=== PATIENT | female | born 1940 | race Hispanic/Latino ===

== ENCOUNTER → 2018-04-12 | Outpatient (CLI) | payer OTHER | END | disposition home or self-care (01) | LOC: RAH 08:26 | PROVIDERS: ATTEND Family Medicine | DX: Z12.31 Encounter for screening mammogram for malignant neoplasm of breast (principal) | CPT/HCPCS: 77067 ==

== ENCOUNTER 2018-05-29 16:52 | Emergency (ER) | payer OTHER ==
[2018-05-29 17:40] LABS: BASOPHILS % (AUTO) 0.9 % (0.0-5.0); EOSINOPHILS % (AUTO) 1.4 % (0.0-8.0); HEMATOCRIT 35.1 % (36-48); MEAN CORPUSCULAR HEMOGLOBIN 27.2 pg (27.0-33.0); MEAN CORPUSCULAR VOLUME 85.1 fL (79-99); MONOCYTES % (AUTO) 6.1 % (3.0-13.0); NEUTROPHILS % (AUTO) 72.6 % (40.0-77.0); PLATELET COUNT (AUTO) 328 K/uL (130-400); RED BLOOD CELL COUNT(AUTO) 4.13 MIL/uL (4.00-5.50); RED CELL DISTRIBUTION WIDTH 26.5 % (11.0-15.5); WHITE BLOOD COUNT (AUTO) 7.3 K/uL (4.8-10.8)
[2018-05-29] MEDS ORDERED: HYDRALAZINE HCL 20 MG/ML VIAL ONE (17:41)
[2018-05-29 17:53] LABS: APPEARANCE,URINE Clear (CLEAR); BILIRUBIN,URINE Negative (NEGATIVE); COLOR,URINE Yellow (YELLOW); GLUCOSE, URINE (UA) Negative (NEGATIVE); KETONES,URINE Negative (NEGATIVE); LEUKOCYTE ESTERASE ,URINE Negative (NEGATIVE); NITRATE,URINE Negative (NEGATIVE); OCCULT BLOOD,URINE Negative (NEGATIVE); PH,URINE 6.5 (5.0-8.0); PROTEIN,URINE Negative (NEGATIVE); UROBILINOGEN,URINE 0.2 mg/dL (0.2-1.0)
[2018-05-29 17:55] LABS: CREATININE 0.7 mg/dL (0.5-1.5); POTASSIUM 4.2 mmol/L (3.5-5.1)
[2018-05-29 17:59] LABS: INR 0.94 (0.85-1.15); PARTIAL THROMBOPLASTIN TIME 25.7 SEC (26.3-35.5); PROTHROMBIN TIME 9.9 SEC (9.6-11.6)
[2018-05-29 18:00] LABS: ALBUMIN 3.4 g/dL (3.5-5.0); BILIRUBIN,TOTAL 0.8 mg/dL (0.2-1.0); TOTAL PROTEIN, SERUM 7.9 g/dL (6.0-8.3)
== END 2018-05-29 19:00 | disposition home or self-care (01) ==
LOC: EDH 16:52
DX: I10 Essential (primary) hypertension (principal); E78.5 Hyperlipidemia, unspecified; Z90.89 Acquired absence of other organs; Z90.710 Acquired absence of both cervix and uterus; Z98.890 Other specified postprocedural states; Z91.041 Radiographic dye allergy status
CPT/HCPCS: 36415; 80053; 81003; 82550; 84484; 85025; 85610; 85730; 93005; 96374; 99284; J0360

== ENCOUNTER → 2023-04-30 | Outpatient (CLI) | payer OTHER ==
[~2023-04-30] MED LIST: AMLO-258 PO; ATOR20TA65 PO; CLON1PAT TD; CLOP75TA32 PO; FAMO20TA8 PO; HYDR-4154 PO; LEVO88CA4 PO; LOSA100T59 PO; METO100T14 PO
== END | disposition home or self-care (01) ==
LOC: SHCH 08:26
PROVIDERS: ATTEND Student in an Organized Health Care Education/Training Program
DX: I08.1 Rheumatic disorders of both mitral and tricuspid valves (principal); I48.0 Paroxysmal atrial fibrillation; I10 Essential (primary) hypertension; E78.5 Hyperlipidemia, unspecified
CPT/HCPCS: 93306

== ENCOUNTER → 2024-01-31 | Outpatient (CLI) | payer OTHER ==
[~2024-01-31] MED LIST changes: +APIX5TAB PO; +FERR-82 PO; -HYDR-4154 PO; +HYDR50TA37 PO; +LEVO137C4 PO; +TRAM100T34 PO
--- NOTE | 2024-02-01 11:59 | HMCSR ---
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 (R) 81.4cm/sec, Biphasic, Prof Fem Art. (L) 86.5cm/sec, Biphasic, Fem Art Prox. (R) 70.4cm/sec, Biphasic, Fem Art Prox. (L) 120.7cm/sec, Biphasic, Fem Art Mid. (R) cm/sec, Occluded, Fem Art Mid. (L) 84.8cm/sec, Biphasic, Fem Art Dist (R) cm/sec, Occluded, Fem Art Dist. (L) 102.8cm/sec, Biphasic, Pop Art(AK) (R) 23.5cm/sec, Monophasic, Pop Art (AK) (L) 104.4cm/sec, Biphasic, Pop Art (Fossa)(R) 26.2cm/sec, Monophasic, Pop Art (Fossa) (L) 75.0cm/sec, Biphasic, Pop Art(BK) (R) 33.1cm/sec, Monophasic, Pop Art (BK) (L) 53.8cm/sec, Biphasic, JEWELRY SALES REPRESENTATIVE Prox. (R) 52.5cm/sec, Biphasic, JEWELRY SALES REPRESENTATIVE Prox. (L) 38.6cm/sec, Biphasic, JEWELRY SALES REPRESENTATIVE Mid. (R) 40.0cm/sec, Monophasic, JEWELRY SALES REPRESENTATIVE Mid. (L) 73.6cm/sec, Biphasic, JEWELRY SALES REPRESENTATIVE Dist. (R) 32.6cm/sec, Monophasic, JEWELRY SALES REPRESENTATIVE Dist. (L) 42.2cm/sec, Biphasic, Per Art Dist. (R) 44.9cm/sec, Monophasic, Per Art Dist. (L) 34.1cm/sec, Biphasic, YEFRI Prox. (R) 40.8cm/sec, Monophasic, YEFRI Prox. (L) 29.7cm/sec, Biphasic, YEFRI Mid. (R) cm/sec, Occluded YEFRI Mid. (L) 29.7cm/sec, Biphasic, YEFRI Dist. (R) cm/sec, Occluded, YEFRI Dist. (L) 26.0cm/sec, Monophasic, Technologist Impression Diffuse atherosclerosis throughout the bilateral lower extremities. The right femoral artery appears occluded with collateralized trickle monophasic flow in the right po pliteal artery. The right anterior tibial artery appears occluded distally, no flow detected to the right dorsalis pe dis artery. The left anterior tibial artery appears atrophied with monophasic flow distally. Conclusion Diffuse atherosclerosis throughout the bilateral lower extremities. The right femoral artery appears occluded with collateralized trickle monophasic flow in the right po pliteal artery. The right anterior tibial artery appears occluded distally, no flow detected to the right dorsalis pe dis artery. The left anterior tibial artery appears atrophied with monophasic flow distally. Conclusion Diffuse atherosclerosis throughout the bilateral lower extremities. The right femoral artery appears occluded with collateralized trickle monophasic flow in the right po pliteal artery. The right anterior tibial artery appears occluded distally, no flow detected to the right dorsalis pe dis artery. The left anterior tibial artery appears atrophied with monophasic flow distally.
--- NOTE | 2024-02-01 11:59 | HMCSR ---
APPROVED REPORT Bilateral Lower Extremity Venous Study for DVT., Venous Competence.Study performed with patient in up right position or in reverse Trendelenburg. Vein Imaging CFV (R): Normal flow, augmentation and compression. No evidence of DVT, Diamter 9.1 mm, 283 ms of DVR . SFJ (R): Normal flow, augmentation and compression. No evidence of DVT. FEM (R): Normal flow, augmentation and compression. No evidence of DVT, 417 ms of DVR. POP (R): Normal flow, augmentation and compression. No evidence of DVT, 228 ms of DVR. DFV (R): Normal flow, augmentation and compression. No evidence of DVT. PTV (R): Normal flow, augmentation and compression. No evidence of DVT. Peroneals (R): Normal flow, augmentation and compression. No evidence of DVT. GAS (R): Normal flow, augmentation and compression. No evidence of DVT. CFV (L): Normal flow, augmen tation and compression. No evidence of DVT, Diamter 10.1 mm SFJ (L): Normal flow, augmentation and compression. No evidence of DVT. FEM (L): Normal flow, augmentation and compression. No evidence of DVT. POP (L): Normal flow, augmentation and compression. No evidence of DVT, 339 ms of DVR. DFV (L): Normal flow, augmentation and compression. No evidence of DVT. PTV (L): Normal flow, augmentation and compression. No evidence of DVT. Peroneals (L): Normal flow, augmentation and compression. No evidence of DVT. GAS (L): Normal flow, augmentation and compression. No evidence of DVT. Technologist Impression The deep veins of the bilateral lower extremities appear patent and compressible without evidence of thrombus. Deep venous reflux demonstrated in the bilateral popliteal veins. RGSV Junction 4.2 mm 0 ms Mid thigh 1.9 mm 0 ms Knee 1.6 mm 0 ms Mid- calf 1.6 mm 0 ms RSSV Prox 1.4 mm 0 ms Mid 1.1 mm 0 ms LGSV Junction 3.7 mm 206 ms Mid thigh 1.9 mm 0 ms Knee 1.7 mm 0 ms Mid-calf 1.5 mm 0 ms LSSV Prox 1.3 mm 0 ms Mid 1.4 mm 0 ms Conclusion The deep veins of the bilateral lower extremities appear patent and compressible without evidence of thrombus. Deep venous reflux demonstrated in the bilateral popliteal veins. Conclusion The deep veins of the bilateral lower extremities appear patent and compressible without evidence of thrombus. Deep venous reflux demonstrated in the bilateral popliteal veins.
== END | disposition home or self-care (01) ==
LOC: SHCH 14:02
PROVIDERS: ATTEND Student in an Organized Health Care Education/Training Program
DX: I70.90 Unspecified atherosclerosis (principal); I87.2 Venous insufficiency (chronic) (peripheral); R06.00 Dyspnea, unspecified
CPT/HCPCS: 93925; 93970

== ENCOUNTER 2024-03-19 20:55 | Emergency (ER) | payer OTHER ==
[~2024-03-19] VITALS: Ht 157.5 cm; Wt 73.0 kg
[~2024-03-19 20:55] MED LIST changes: -APIX5TAB PO; -FERR-82 PO; -LEVO137C4 PO; -TRAM100T34 PO
--- NOTE | 2024-03-19 20:55 | NUR ---
FINGER STICK GLUCOSE 108
--- NOTE | 2024-03-19 21:00 | NUR ---
TAKEN TO CT SCAN
--- NOTE | 2024-03-19 21:12 | NUR ---
BACK FROM CT SCAN
--- NOTE | 2024-03-19 21:14 | HMCIMG ---
CT HEAD/BRAIN W/O CONTRAST CLINICAL HISTORY: STROKE CODE COMPARISON: None TECHNIQUE: Multiple sequential axial images of the head were obtained from the base of the skull through vertex. CT was performed with one or more of the following dose reduction techniques: automated exposure control, adjustment of the mA and/or kV according to patient size, or use of iterative reconstruction technique FINDINGS: There is moderate atrophy and advanced small vessel disease. Additionally noted are resolved bilateral basal ganglion lacunar infarcts. The orbital contents, paranasal sinuses and mastoid air cells are within normal limits. The calvarium is intact. IMPRESSION: There are no acute findings. This information was called to the ER by the CT staff.
--- NOTE | 2024-03-19 21:36 | ERN ---
ED Note History of Present Illness Stated Complaint: STROKE SYMPTOMS Chief Complaint: Stroke Symptoms Time Seen by MD: 20:57 Dictation: 83-year-old female who was brought into the emergency room with a left facial droop. She was at her usual baseline until 3:00 p.m. when she took a nap. She had no symptoms prior to that and when she woke up she was going about her business and at some point the son noticed that her left face appeared asymmetric and brought her into the ED for further evaluation. Patient has a history of right renal mass in the upper pole and has been undergoing chemotherapy details are unclear at this time. 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 Stroke alert was called at 8:51 p.m. ER physician arrival 8.51 pm. GCS 15, NIH 1 Patient reported that she did not have any headache blurred vision diplopia motor weakness seizure activity or slurred speech. No history of loss of consciousness no history of fall. Her last known well time was at 3:00 p.m. 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 Allergies: Coded Allergies: Fish Containing Products (Unverified Allergy, Unknown, 12/07/22) fish oil (Unverified Allergy, Unknown, 12/07/22) hives iodine (Unverified Allergy, Unknown, 12/07/22) vitamin E (d-alpha tocopherol) (Unverified Allergy, Unknown, 12/07/22) hives Home Meds Reported Medications Apixaban (Eliquis) 5 Mg Tablet, 1 TAB PO BID for 30 Days, #60 TAB 0 Refills 03/19/24 Tramadol HCl (Tramadol HCl ER) 100 Mg Tab.er.24h, 0.5 TAB PO Q6HPRN PRN for pain for 30 Days, #30 TAB 0 Refills 03/19/24 Levothyroxine Sodium (Levothyroxine) 137 Mcg Capsule, 1 CAP PO DAILY for 30 Days, #30 CAP 0 Refills 03/19/24 Ferrous Sulfate (Iron) 325 Mg (65 Mg Iron) Tablet, 1 TAB PO DAILY for 30 Days, #30 TAB 0 Refills 03/19/24 Hydralazine HCl (Hydralazine HCl) 50 Mg Tablet, 50 MG PO BIDMEALS, TAB 12/07/22 Atorvastatin Calcium (Atorvastatin Calcium) 20 Mg Tablet, 20 MG PO HS, TAB 12/07/22 Levothyroxine Sodium (Levothyroxine) 88 Mcg Capsule, 88 MCG PO DAILYBKFST, CAP 12/07/22 Losartan Potassium (Losartan Potassium) 100 Mg Tablet, 100 MG PO DAILY, TAB 12/07/22 Metoprolol Tartrate (Metoprolol Tartrate) 100 Mg Tablet, 100 MG PO DAILY, TAB 12/07/22 Amlodipine Besylate (Amlodipine Besylate) 10 Mg Tablet, 10 MG PO DAILY for 30 Days, #30 TAB 0 Refills 12/07/22 Clonidine (Catapres-Tts 1) 0.1 Mg/24 Hour Patch, 0.1 MG TD AD, ADH.PATCH 12/07/22 Famotidine (Famotidine) 20 Mg Tablet, 20 MG PO AD, TAB 12/07/22 Clopidogrel Bisulfate (Clopidogrel) 75 Mg Tablet, 75 MG PO DAILY, TAB 12/07/22 Past Medical History Past Medical History: High Cholesterol, Hypertension, Other Additional Past Medical Hx: History of right renal mass, renal vein thrombosis Surgical History: Hysterectomy, Tonsillectomy Family History: Negative Social History: Negative History: Not Applicable RN Note Reviewed/Agreed w/PFSH: Yes Review of System Dictation Constitutional: Negative for fever,chills, and weight loss Eyes: Negative for injury, pain,redness, and discharge ENT: Negative for injury,pain or swelling Cardiovascular: Negative for chest pain, palpitations, and edema Respiratory: Negative for shortness of breath, cough, and wheezing, Abdomen/GI: Negative for abdominal pain, nausea, vomiting, diarrhea, and constipation Back: Negative for injury and pain : Negative for injury, bleeding and discharge MS/Extremity: Negative for injury and deformity Skin: Negative for rash, and discoloration Neuro: Negative for headache, weakness, numbness, tingling, and seizure Psych: Negative for suicide ideation, homicidal ideation, and hallucinations Initial Vital Sign VS Vital Signs Date Time Temp Pulse Resp B/P (MAP) Pulse Ox O2 Delivery O2 Flow Rate FiO2 03/19/24 20:57 98.1 79 16 129/63 98 Room Air 0 03/19/24 21:42 21 Physical Exam Dictation General: awake, alert, NAD Head/Face: Normocephalic, atraumatic Eyes: PERRL, EOMI, vision at baseline ENT: oral cavity clear, TMs clear, no signs of infection Neck: Trachea midline, supple, no nuchal rigidity Cardiovascular: RRR, normal S1/S2, No MRGs, no JVD Respiratory: CTAB, no respiratory distress, No rales or wheezes Abdomen: Soft, non-tender, non-distended, normal bowel sounds, no guarding or rebound. Skin: Warm, dry, normal turgor, no rash MS/Extremity: Pulses equal, no cyanosis, neurovascular intact, FROM Neuro: COAx4, GCS 15, strength 5/5, normal cerebellar exam, normal gait, left facial droop Psych: Normal behavior, mood, and affect normal Extremities-trace edema without any palpable cords, Homans sign is negative Results (Laboratory/Radiology) Laboratory/Radiology Laboratory Tests Test 03/19/24 21:37 White Blood Count 5.1 K/uL (4.8-10.8) Red Blood Count 3.52 MIL/uL (4.00-5.50) L Hemoglobin 12.0 g/dL (12.0-16.0) Hematocrit 36.1 % (36-48) Mean Corpuscular Volume 102.6 fL (79-99) H Mean Corpuscular Hemoglobin 34.1 pg (27.0-33.0) H Mean Corpuscular Hemoglobin Concent 33.2 g/dL (32.0-36.0) Red Cell Distribution Width 16.6 % (11.0-15.5) H Platelet Count 264 K/uL (130-400) Mean Platelet Volume 9.5 fL (7.5-10.5) Immature Granulocyte % (Auto) 0.2 % (0-1) Neutrophils (%) (Auto) 64.2 % (40.0-77.0) Lymphocytes (%) (Auto) 25.1 % (21.0-51.0) Monocytes (%) (Auto) 9.7 % (3.0-13.0) Eosinophils (%) (Auto) 0.4 % (0.0-8.0) Basophils (%) (Auto) 0.4 % (0.0-5.0) Neutrophils # (Auto) 3.3 K/uL (1.8-7.7) Lymphocytes # (Auto) 1.3 K/uL (1.0-4.8) Monocytes # (Auto) 0.5 K/uL (0.1-1.0) Eosinophils # (Auto) 0.02 K/uL (0.00-0.70) Basophils # (Auto) 0.02 K/uL (0.00-0.20) Absolute Immature Granulocyte (auto 0.01 K/uL (0-1) Nucleated Red Blood Cells 0.0 % (0.0-0.19) Sodium Level 140 mmol/L (136-145) Potassium Level 4.0 mmol/L (3.5-5.1) Chloride Level 106 mmol/L (101-111) Carbon Dioxide Level 25 mmol/L (21-32) Blood Urea Nitrogen 17 mg/dL (7-18) Creatinine 0.9 mg/dL (0.5-1.0) Glomerular Filtration Rate Calc 63 mL/min (>90) Random Glucose 108 mg/dL (70-105) H Total Calcium 8.6 mg/dL (8.5-10.1) Total Creatine Kinase 85 U/L (21-232) Troponin I High Sensitivity 35.9 ng/L (4-50) Labs Reviewed?: Yes EKG Comment: Twelve lead EKG done on 03/19/2024 at 9:28 p.m. showed a heart rate of 77 intermittent P wave QRS 98 QT/QTC 404/457 Impression there was a lot of artifactual recording and especially in the lateral leads I was able to see the P wave which was discernible paroxysmal atri al fibrillation is certainly likely no acute ST elevations or deep ST depressions. Need to repeat EKG. Interpreted by Dr. Tijerina Ultrasound Comment: Echocardiogram Conclusion Left ventricular cavity size is normal. LVEF is 55-60%. The right ventricle is normal size. The right ventricular systolic function is normal. Severe LAE. The right atrium size is normal. There is moderate mitral valve regurgitation noted. Mild TR, RVSP 44 mm hg. The pericardium appears normal. DICTATED BY: AMIRA MOREL MD DATE: 04/30/23 09 ELECTRONICALLY SIGNED BY: AMIRA MOREL MD DATE: 05/01/[address] Scan Comment: PATIENT: KARINA BARRETT MR#: [id number] : 1940 SEX: F AGE: 83 LOCATION: [facility] ORDER 02 STATUS: PRE ER REPORT#: [id number] SERVICE 01 REASON: STROKE CODE ORDERING PHYSICIAN: ANA TIJERINA MD PROCEDURE: HEAD WO - CT HEAD/BRAIN W/O CONTRAST CT HEAD/BRAIN W/O CONTRAST CLINICAL HISTORY: STROKE CODE COMPARISON: None TECHNIQUE: Multiple sequential axial images of the head were obtained from the base of the skull through vertex. CT was performed with one or more of the following dose reduction techniques: automated exposure control, adjustment of the mA and/or kV according to patient size, or use of iterative reconstruction technique FINDINGS: There is moderate atrophy and advanced small vessel disease. Additionally noted are resolved bilateral basal ganglion lacunar infarcts. The orbital contents, paranasal sinuses and mastoid air cells are within normal limits. The calvarium is intact. IMPRESSION: There are no acute findings. This information was called to the ER by the CT staff. DICTATED BY: DEYSI VASQUEZ DO DATE: 03/19/242109 ELECTRONICALLY SIGNED BY: DEYSI VASQUEZ DO DATE: 03/19/242113 ED Course ED Course Orders Procedure Category Date Status Time Ct Head/Brain W/O CT 03/19/24 Resulted Contrast 21:02 Cbc With Differential LAB 03/19/24 Complete 21:21 Basic Metabolic Panel LAB 03/19/24 Complete 21:21 Cardiac Panel LAB 03/19/24 Complete 21:21 Urinalysis Profile LAB 03/19/24 Logged 21:21 Chest 1vw RAD 03/19/24 Resulted 21:21 12 Lead Ekg Tracing- EKG 03/19/24 Logged Technical 21:21 Vital Signs Date Time Temp Pulse Resp B/P (MAP) Pulse Ox O2 Delivery O2 Flow Rate FiO2 03/20/24 00:51 98.1 84 18 139/61 99 Room Air* 0 03/19/24 22:40 98.1 83 16 122/65 99 Room Air* 0 03/19/24 21:42 98.1 79 16 129/63 98 Room Air* 0 21 03/19/24 20:57 98.1 79 16 129/63 98 Room Air 0 We will perform diagnostic labs, advanced imaging and administer medications according to the patient's complaint. Once the results are available, will review and personally interpreted the labs to rule out any acute life- threatening emergency the trach require immediate intervention and treatment. I will then re-evaluate the patient after treatment and diagnostic exams have return to determine whether the patient requires any further testing, can safely be discharged home or need further admission to hospital for additional treatment and evaluation. 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 scan of the head is negative for any acute intracranial bleed or mass effect. Labs are pending. Patient is unable to pursue CT scan of the head and neck angio as she is allergic to and iodine. Patient is out of window for any lytic therapy. With only isolated left facial paralysis doubt if patient would be a candidate for any neuro intervention at this time Patient is compliant with her Eliquis We will pursue MRI tomorrow 10:32 p.m. call placed to [facility]-neurologist 10:[address] Em Martinez, tele neurologist who concurs with my plan to pursue MRI tomorrow. The only thing she has suggested was to hold the Eliquis until MRI is done. We will admit patient for further management-neuro checks, optimize blood press ure control, avoidance of hyperglycemia and hyperthermia. ST PT eval else. 11:20 p.m. as there is no acute intervention either in the form of thrombolytic therapy or acute neurological intervention, knees just an admission and overnight monitoring. 11:40 p.m. [facility] hospitalist group was called for admission and mid-level provider Radha felt uncomfortable to accept the patient due to lack of neurologist in the hospital. We will attempt to see if the patient can be transferred out 1:03 a.m. discussed with emergency room physician at [facility] who has graciously accepted the patient for transfer and further management. I have updated the patient and her son about the plan of care and they are agreeable Medical Decision Making MDM MDM: Differential diagnosis: TIA, Caruso's palsy, CVA Rationale: Tests considered and ordered secondary to shared decision making include: labs, ECG and radiology Previous outside records reviewed: Old ER visits. Risk of complication and/or morbidity or mortality of patient management: None Medications-Per medication reconciliation Need for hospitalization: Patient does meet criteria for hospitalization. Need for emergency major/minor surgery: No There are no social concerns with this patient. Prescription drug management Prescriptions will include symptomatic care Patient's prior external medical records from other ER visits were reviewed by me as indicated. Prior testing and results from previous visits were reviewed. Prior tests were taken into account with medical decision making and resource utilization, independent historian/historians were used to obtain complete medical history. I independently interpreted the test that were performed, results were reviewed by me and considered findings on radiology if ordered. Medical management and examination interpretation discussions were had by me with other qualified healthcare professionals as indicated for the patient's care. 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 (6) Facial paralysis on left side (7) Stroke-like symptoms Stroke Patient?: No Contraindication for t-PA?: Medical Contraindication NIH STROKE SCALE: NIH STROKE SCALE Response (Comments) Value Level of Consciousness Alert 0 Ask patient month and their age Answers both correct 0 Command to open eyes, make fist and let go Obeys both correct 0 Best gaze (horizontal eye movement) Normal 0 Visual Field Testing No Visual Field Loss 0 Facial Paresis Minor Paralysis 1 Motor Function - Left Arm Normal 0 Motor Function - Right Arm Normal 0 Motor Function - Left Leg Normal 0 Motor Function - Right Leg Normal 0 Limb Ataxia No Ataxia 0 Sensory-pin prick to arms, legs, trunk and face Normal 0 Best Language (describe picture, name items and read) No Aphasia 0 Dysarthria (read several words) Normal Articulation 0 Extinction and Inattention Normal 0 Total 1 DX & DISP Disposition: Transfer Decision to Admit Time: 22:41 Departure Impression: Primary Impression: Facial paralysis on left side Additional Impressions: Stroke-like symptoms, Hypertension, Right renal mass, Renal cell carcinoma, Hx of renal vein thrombosis, 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 Patient will be transferred to a facility that provides a higher level of care since such services are not accessible locally or within our immediate community. The patient is alert oriented and not experiencing any acute distress. There are no signs of sepsis and patient's hemodynamic status is stable at the moment. Medically, the patient is considered stable for transfer Patient transferred to [facility] emergency room Referrals: SADIA PICKETT MD (PCP) ANA TIJERINA MD Mar 19, 2024 21:36
[2024-03-19 21:44] LABS: BASOPHILS # (AUTO) 0.02 K/uL (0.00-0.20); BASOPHILS % (AUTO) 0.4 % (0.0-5.0); EOSINOPHILS # (AUTO) 0.02 K/uL (0.00-0.70); EOSINOPHILS % (AUTO) 0.4 % (0.0-8.0); HEMATOCRIT 36.1 % (36-48); IMMATURE GRANULOCYTE ABSOLUTE 0.01 K/uL (0-1); LYMPHOCYTES # (AUTO) 1.3 K/uL (1.0-4.8); LYMPHOCYTES % (AUTO) 25.1 % (21.0-51.0); MEAN CORPUSCULAR HEMOGLOBIN 34.1 pg (27.0-33.0); MEAN CORPUSCULAR HGB CONC 33.2 g/dL (32.0-36.0); MEAN CORPUSCULAR VOLUME 102.6 fL (79-99); MONOCYTES # (AUTO) 0.5 K/uL (0.1-1.0); MONOCYTES % (AUTO) 9.7 % (3.0-13.0); NEUTROPHILS # (AUTO) 3.3 K/uL (1.8-7.7); NEUTROPHILS % (AUTO) 64.2 % (40.0-77.0); PLATELET COUNT (AUTO) 264 K/uL (130-400); RED BLOOD CELL COUNT(AUTO) 3.52 MIL/uL (4.00-5.50); RED CELL DISTRIBUTION WIDTH 16.6 % (11.0-15.5); WHITE BLOOD COUNT (AUTO) 5.1 K/uL (4.8-10.8)
[2024-03-19 21:53] LABS: CREATININE 0.9 mg/dL (0.5-1.0)
[2024-03-19] MEDS ORDERED: FERR-82 PO (21:59)
[2024-03-19] MEDS ORDERED: LEVO137C4 PO (22:00)
[2024-03-19] MEDS ORDERED: TRAM100T34 PO (22:02)
[2024-03-19] MEDS ORDERED: APIX5TAB PO (22:02)
--- NOTE | 2024-03-19 22:44 | CONS ---
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 Last Known Normal: - I have collected independent history specific to time last normal or last known well. We have collaborated with the provider and at this time, we have the most current timeline with the information that is available. 3PM # Scores Time of exam and NIHSS (Central Time): 03/19/2024, 22:28 Level of Consciousness 1a: [0] = Alert; keenly responsive LOC Questions 1b: [0] = Answers both questions correctly LOC Commands 1c: [0] = Performs both tasks correctly Best Gaze 2: [0] = Normal Visual 3: [0] = No visual loss Facial Palsy 4: [1] = Minor paralysis Motor Arm Left 5a: [0] = No drift Motor Arm Right 5b: [0] = No drift Motor Leg Left 6a: [1] = Drift Motor Leg Right 6b: [0] = No drift Limb Ataxia 7: [0] = Absent Sensory 8: [1] = Cjuj-hk-fpcgfbjh sensory loss Best Language 9: [0] = No aphasia Dysarthria 10: [1] = Sway-kr-eildcijx dysarthria Extinction and Inattention 11: [0] = No abnormality NIHSS Total: 4 # Data Time Head CT personally read by me (Central Time): 03/19/2024, 22:[address]: - no bleed - preliminarily reviewed by me, please refer to radiology read for official reading # Assessment Impression: - Ischemic Stroke (Acute) # Plan Thrombolytic/Intervention: NOT IV Thrombolysis or IA Intervention candidate Thrombolytic Exclusion: > 4.5 hours Intraarterial Exclusion: - clinical exam not consistent with presence of large vessel occlusion (LVO), can reconsider if LVO found on vascular imaging Target Blood Pressure: - SBP < 220 - DBP < 120 Labs: - lipid panel - hemoglobin A1c - CBC - basic metabolic panel - urine drug screen - troponin Imaging: (urgency: STAT): Refusing CTA due iodine contrast allergy Imaging: (urgency: routine): - MRI Brain without contrast - MR Angiogram Neck with contrast - MR Angiogram Head without contrast Diagnostic Test: - echo with bubble study Therapy/Evaluation: - PT/OT evaluation - speech/swallow consultation Medication: - start statin with goal of LDL < 70 Hold Eliquis until obtaining MRI, timing of restart depending on size of infarct on MRI Other: - If patient has any neurological deterioration please call me back immediately - permissive hypertension - telemetry monitoring - LDL < 70 - I have discussed my recommendations with the referring provider - provide smoking cessation resources and counseling to patient Additional Recommendations: - Permissive HTN for next 24-48 hours, then gradual control by no more than 15% daily monitoring for neurological stability - Avoid dehydration and relative hypotension - Risk factor modification, including smoking cessation and alcohol moderation if appropriate - Monitor glucose and correct as needed - If cryptogenic non-lacunar stroke on MRI, obtain outpatient cardiac monitoring for a fib # Logistics Attestation of consult completion: The patient is located at: [facility]. Facility staff participated in the visit. I performed this telemedicine visit from my offsite office utilizing interactive 2 way audio and visual telecommunication technology. Total time spent in telemedicine encounter: I spent 27 minutes reviewing clinical data and/or imaging, obtaining history, examining the patient, communicating with the onsite care team, and in preparation of this report. # Demographics First Name: KARINA L. Last Name: ARNOLD Facility: [facility] HAYLEY CURTIS MD Mar 19, 2024 22:44
--- NOTE | 2024-03-19 23:01 | NUR ---
SON AT BEDSIDE, PATIENT REPORT GIVEN TO GUDELIA RUBALCAVA
--- NOTE | 2024-03-19 23:57 | HMCIMG ---
CHEST 1VW HISTORY: Stroke symptoms COMPARISON: 12/08/2022 FINDINGS: A frontal projection of the chest was obtained. Prominent interstitial markings are seen with possible superimposed infiltrates. The heart is borderline enlarged. Degenerative changes are seen. Port-A-Cath is seen entering from the right. IMPRESSION: 1. Prominent interstitial markings are seen with possible superimposed infiltrates.
[2024-03-20 02:00] VITALS: BP 140/64; PULSE 82; RESP 18; TEMP 98.4; O2SAT 99
--- NOTE | 2024-03-20 06:55 | EKG ---
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
== END 2024-03-20 02:13 | disposition short-term general hospital (02) ==
LOC: EDH 20:55
DX: G51.0 Bell's palsy (principal); I10 Essential (primary) hypertension; C64.1 Malignant neoplasm of right kidney, except renal pelvis; E78.00 Pure hypercholesterolemia, unspecified; I82.3 Embolism and thrombosis of renal vein; Z79.01 Long term (current) use of anticoagulants; Z79.02 Long term (current) use of antithrombotics/antiplatelets; Z79.890 Hormone replacement therapy; Z79.899 Other long term (current) drug therapy; Z85.528 Personal history of other malignant neoplasm of kidney; Z86.718 Personal history of other venous thrombosis and embolism; Z88.8 Allergy status to other drugs, medicaments and biological substances; Z90.710 Acquired absence of both cervix and uterus; Z91.041 Radiographic dye allergy status
CPT/HCPCS: 36415; 70450; 71045; 80048; 82550; 82948; 84484; 85025; 93005; 99285